=== PATIENT | female | born 1965 | race Caucasian/White ===

== ENCOUNTER 2019-12-07 15:16 | Emergency (ER) | payer OTHER ==
[2019-12-07 15:28] VITALS: BP 137/81
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
== END 2019-12-07 17:51 | disposition home or self-care (01) ==
LOC: ER 15:16
DX: S89.91XA Unspecified injury of right lower leg, initial encounter (principal); M25.561 Pain in right knee; W18.09XA Striking against other object with subsequent fall, initial encounter; Y93.19 Activity, other involving water and watercraft; Y92.832 Beach as the place of occurrence of the external cause
CPT/HCPCS: 99283